=== PATIENT | male | born 1960 | race Caucasian/White ===

== ENCOUNTER 2024-02-16 06:28 | Outpatient (CLI) | payer MEDICARE, BC, SELFPAY ==
--- NOTE | 2024-02-16 07:56 | W.ANESCHARGE ---
Anesthesia Charges Start Date/Time Anesthesia Start Date: 02/16/24 Anesthesia Start Time: 07:27 Stop Date/Time Anesthesia Stop Date: 02/16/24 Anesthesia Stop Time: 08:14
--- NOTE | 2024-02-16 08:19 | W.ANESCHARGE ---
Anesthesia Charges Start Date/Time Anesthesia Start Date: 02/16/24 Anesthesia Start Time: 07:27 Stop Date/Time Anesthesia Stop Date: 02/16/24 Anesthesia Stop Time: 08:14
== END 2024-02-16 06:29 | disposition home or self-care (01) ==
LOC: OP CLINIC 06:33
PROVIDERS: PCP Family Medicine; Visit Provider Internal Medicine Gastroenterology
DX: R13.10 Dysphagia, unspecified (principal); R07.89 Other chest pain; Z86.0101 Personal history of adenomatous and serrated colon polyps
CPT/HCPCS: 00813; 43239; 45378; 88305; J2704; J3010

== ENCOUNTER 2024-11-06 08:57 | Outpatient (CLI) | payer MEDICARE, BC, SELFPAY ==
--- NOTE | 2024-11-06 09:15 | CRLHL7_ITS ---
For Patients: As a result of the Century Cures Act, medical imaging exams and procedure reports are released immediately into your electronic medical record. You may view this report before your referring provider. If you have questions, please contact your health care provider. INDICATION: Kidney stones. COMPARISON: CT abdomen and pelvis without contrast September 02, 2024. TECHNIQUE: Ulcerative comminution of the kidneys and bladder. FINDINGS: The right kidney measures 9.3 x 4.7 x 4.4 cm and the left kidney measures 13.7 x 6.4 x 4.5 cm. Normal echogenicity of the renal cortex bilaterally. Normal thickness of the renal cortex bilaterally measuring at 1.1 cm on the right and 1.8 cm on the left. No obstructive uropathy or perinephric pathology. Cortical cysts right kidney. The prevoid bladder volume 36 cc and postvoid bladder volume 24 cc. IMPRESSION: 1. Cortical cysts right kidney. 2. No evidence of hydronephrosis on either side. 3. No other abnormalities are identified. Dictated by Lynn Rice MD @ 11/11/2024 10:29:06 AM (Electronically Signed)
== END 2024-11-06 08:58 | disposition home or self-care (01) ==
LOC: US 09:01
PROVIDERS: PCP Family Medicine; Visit Provider Urology
DX: N20.0 Calculus of kidney (principal)
CPT/HCPCS: 76770